=== PATIENT | male | born 1985 | race Native Hawaiian/Other Pacific Islander ===

== ENCOUNTER 2018-07-03 20:14 | Emergency (ER) | payer MEDICAID ==
[~2018-07-03] VITALS: Ht 170.2 cm; Wt 131.5 kg
[2018-07-03 20:17] VITALS: BP 158/99
[2018-07-03] MEDS ORDERED: KETOROLAC TROMETH 60MG/2ML VIAL IM ONE (21:30)
== END 2018-07-03 21:48 | disposition home or self-care (01) ==
LOC: ER 20:14
DX: M10.9 Gout, unspecified (principal)
CPT/HCPCS: 73610; 73630; 96372; 99283; J1885